=== PATIENT | male | born 1980 | race Caucasian/White ===

== ENCOUNTER 2020-09-16 11:50 | Emergency (ER) | payer MEDICAID, SELFPAY ==
[2020-09-16 11:51] VITALS: BP 141/89; PULSE 108; RESP 16; TEMP 36.6; O2SAT 96; BMI 28.1
--- NOTE | 2020-09-16 12:07 | EDS_ITS ---
HPI History of Present Illness Chief Complaint: General Illness Informant: patient Narrative Narrative: 40-year-old male presents out of concern for dehydration. Patient recently was out of nursing home and has moved up here to help a friend and his palate shop. He states that it is well over 100 degrees inside the facility. He states that 2 weeks ago he stopped taking risperidone and Zoloft because he did not feel it was helping him. States that he has had a lot of life stressors since leaving nursing home and wonders what affect his anxiety has on his dehydration. He states that he has vomited copious amounts of time today and has drank 3 gallons of water. He states that at times his fingers and his hands lock up. He also would like me to evaluate his purple feet with black spots. PFSH PFS Medical History Anxiety Hepatitis C History of intravenous drug use in remission Home Medications NK 09/16/20 [History Last Taken Unknown] Allergy/AdvReac Type Severity Reaction Status Date / Time No Known Allergies Allergy Verified 09/16/20 11:53 no surgical history Social History (Updated 09/16/20 @ 12:[address] Jorge Landers, DO) Smoking Status: Current every day smoker tobacco type: cigarettes substance use type: former substance user and opiates ROS ROS ED Constitutional Constitutional ED: Denies chills or weight loss Eyes Eyes: Denies change in vision or diplopia ENT ENT ED: Denies ear pain, rhinorrhea or sore throat Cardiovascular Cardiovascular: Denies chest pain, orthopnea, palpitations or racing heartbeat Respiratory/Chest Respiratory/Chest: Denies cough, dyspnea or orthopnea Gastrointestinal Gastrointestinal: Reports nausea and vomiting; Denies abdominal pain or diarrhea Genitourinary Genitourinary ED: Denies dysuria, hematuria or urinary frequency Musculoskeletal Musculoskeletal: Reports other Details: Muscle spasms ; Denies arthralgias or myalgias Integumentary Denies abscess or rash Neurologic Neurologic: Denies headache(s) or weakness Psychiatric Psychiatric: Reports anxiety; Denies depression, suicidal ideation or suicidal thoughts Endocrine Endocrinology: Denies polydipsia, polyphagia or polyuria Allergic/Immunologic Allergic/Immunologic ED: Denies mouth swelling, tongue swelling or urticaria EXAM Physical Exam Const Vital Signs: 09/16/20 11:51 09/16/20 12:11 Temperature 97.9 F Temperature Source Temporal Pulse Rate 108 H Respiratory Rate 16 Respiratory Effort Normal Non-Labored Respiratory Pattern Normal Blood Pressure 141/89 H Blood Pressure Mean 106 Pulse Ox 96 Oxygen Delivery Method Room Air Positive well nourished and well developed General Appearance ED: well developed HEENT Reports normocephalic, head/scalp atraumatic and moist mucous membranes Eyes PERRL and EOMs intact bilaterally Neck no lymphadenopathy, supple and no JVD Resp normal respiratory effort and clear to auscultation bilaterally Cardio regular rate, regular rhythm and no murmurs GI normal to inspection, nondistended, normoactive bowel sounds and non-tender Palpation: soft Back/Spine no CVA tenderness and normal ROM Extremity Extremity Narrative: Patient has extensive varicosities of the lower extremities. No significant swelling. General Extremety ED: Negative for edema General Extremity: Negative for edema Neuro oriented x3 and CN's II-XII intact bilaterally Sensorium / Orientation: alert Motor Exam: strength 5/5 throughout Psych mental status grossly normal Mood & Affect: Negative for depressed or tearful Skin no rashes or lesions noted and no wounds MDM MDM MDM Narrative Medical decision making narrative: Patient's white count of 12.1. Sodium potassium are within normal limits. BUN of 25 with a creatinine of 1.32. He does have elevation of his transaminases and bilirubin (most likely from chronic untreated hepatitis C). Patient was encouraged to properly hydrate but not overly hydrated. The patient would like referral to primary care as well as mental health counseling. Lab Data Attestation: I reviewed the patient's lab results. Labs: Laboratory Results - last 24 hr 09/16/20 09/16/20 12:05 12:05 WBC 12.1 H RBC 5.73 Hgb 17.2 H Hct 51.6 MCV 90.1 MCH 30.0 MCHC 33.3 RDW Std Deviation 44.3 H RDW Coeff of Jaleesa 13.3 Plt Count 299 MPV 10.2 Immature Gran % (Auto) 0.700 Neut % (Auto) 81.9 H Lymph % (Auto) 8.3 L [place] % (Auto) 8.3 Eos % (Auto) 0.2 Baso % (Auto) 0.6 Absolute Neuts (auto) 9.9 H Absolute Lymphs (auto) 1.00 Nucleated RBC % 0 Sodium 139 Potassium 3.8 Chloride 104 Carbon Dioxide 25.0 Anion Gap 10 BUN 25 H Creatinine 1.32 H Estim Creat Clear Calc 72.69 Est GFR (MDRD) Af Amer 78 Est GFR (MDRD) Non-Af 64 BUN/Creatinine Ratio 18.9 Glucose 116 H Calcium 9.8 Total Bilirubin 1.20 H AST 54 H ALT 75 H Alkaline Phosphatase 108 Total Protein 9.4 H Albumin 5.1 H Globulin 4.3 H Albumin/Globulin Ratio 1.2 Discharge Plan Triage Chief Complaint: General Illness ED Provider: Jorge Landers Dx/Rx/DC Orders Clinical Impression: Chronic venous insufficiency, Chronic hepatitis C Instructions: ED Varicose Veins Prescriptions: No Action NK RF: 0 Primary Care Provider: Care Physician,No Primary Referrals: Counseling,Center [GROUP OF PHYSICIANS] - As soon as possible (for mental health counseling) Maninder Dickey, DO [STAFF PHYSICIAN] - As soon as possible (for primary care) NOT,DEFINED [NON-STAFF] - Disposition Disposition: Home, self care
[2020-09-16 12:21] LABS: Absolute Neutrophil Count 9.9 X10^3/uL (2.0-7.7); Basophil# 0.07 X10^3/uL; Basophil% 0.6 % (0-1); Eosinophil# 0.03 X10^3/uL; Eosinophils% 0.2 % (0-5); Hematocrit 51.6 % (40-54); Hemoglobin 17.2 g/dL (13.0-16.5); Lymphocyte % 8.3 % (19-41); Mean Corp Hgb Conc 33.3 g/dL (32-36); Mean Corpuscular Volume 90.1 fL (80-94); Mean Platelet Vol. 10.2 fl (6.2-12.0); Monocyte% 8.3 % (0-10); NRBC Flagged by Analyzer 0 % (0-5); Neutrophil # 9.93 X10^3/uL (2.7-7.7); Neutrophil % 81.9 % (47-70); Platelet Count 299 K/mm3 (150-450); RBC Distribution Width CV 13.3 % (11.6-14.6); RBC Distribution Width SD 44.3 fl (35.1-43.9); Red Blood Count 5.73 M/mm3 (4.6-6.2); White Blood Count 12.1 K/mm3 (4.4-11.0)
[2020-09-16 12:37] LABS: ALB/GLOB Ratio 1.2 RATIO (0.9-2.4); AST(SGOT) 54 U/L (15-37); Alanine Aminotransfer ALT/SGPT 75 U/L (16-61); Albumin, Serum 5.1 g/dL (3.2-5.0); Alkaline Phosphatase 108 U/L (45-117); Anion Gap 10 (5-15); BUN 25 mg/dL (7-18); BUN/Creat Ratio 18.9 RATIO (10-20); Calcium,Total 9.8 mg/dL (8.5-10.1); Chloride 104 mmol/L (98-107); Creatinine, Serum 1.32 mg/dL (0.70-1.30); EST Glomerular Filtration Rate 64 mL/min (>60); Est Glom Filt Rate - Afr Amer 78 mL/min (>60); Estimated Creatinine Clearance 72.69 ml/min; Globulin 4.3 g/dL (2.2-4.2); Glucose 116 mg/dL (74-106); Potassium 3.8 mmol/L (3.5-5.1); Protein, Total 9.4 g/dL (6.4-8.2); Sodium Level 139 mmol/L (136-145)
== END 2020-09-16 13:10 | disposition home or self-care (01) ==
PROVIDERS: Emergency Provider Emergency Medicine
DX: I87.2 Venous insufficiency (chronic) (peripheral) (principal); B18.2 Chronic viral hepatitis C; F17.210 Nicotine dependence, cigarettes, uncomplicated
CPT/HCPCS: 80053; 85025; 99283; A4216